=== PATIENT | female | born 1950 | race American Indian/Alaskan Native ===

== ENCOUNTER 2016-12-08 05:31 | Outpatient (CLI) | payer BC ==
[~2016-12-08] VITALS: Ht 175.3 cm; Wt 99.8 kg
[~2016-12-08 05:31] MED LIST: CLAR-19 PO; MINO45TA PO; NF-CODDM PO; OMEP-10 PO
[2016-12-08] MEDS ORDERED: FLUO60TA PO (10:28)
[2016-12-08] MEDS ORDERED: DULO30CA3 PO (10:28)
[2016-12-08] MEDS ORDERED: CYCL10TA9 PO (10:28)
[2016-12-08] MEDS ORDERED: LEVO25TA5 PO (10:28)
[2016-12-08] MEDS ORDERED: OMEP20CA12 PO (10:28)
[2016-12-08] MEDS ORDERED: MINO100C2 PO (10:28)
[2016-12-08] MEDS ORDERED: ALPR1TAB2 PO (10:31)
[2016-12-08] MEDS ORDERED: VITA-244 PO (10:31)
== END 2016-12-08 10:40 ==
LOC: PREOP 05:31
PROVIDERS: ATTEND Surgery
DX: Z01.818 Encounter for other preprocedural examination (principal); Z12.11 Encounter for screening for malignant neoplasm of colon; K21.9 Gastro-esophageal reflux disease without esophagitis

== ENCOUNTER 2016-12-10 11:33 | Day surgery (SDC) | payer BC ==
[~2016-12-10] VITALS: Ht 175.3 cm; Wt 99.8 kg
[~2016-12-10 11:33] MED LIST changes: +ALPR1TAB2 PO; +CYCL10TA9 PO; +DULO30CA3 PO; +FLUO60TA PO; +LEVO25TA5 PO; +MINO100C2 PO; +OMEP20CA12 PO; +VITA-244 PO
--- OUTSIDE RECORDS SUMMARY | 2016-12-10 11:38 | XMS REPORT ---
Author Author MATHEW VELÁZQUEZ [facility] Address [address] [place] [address] Care Team Providers Care Hardware Engineer Name Role Phone MATHEW VELÁZQUEZ Unavailable PROBLEMS Type Condition ICD9-CM Code [id number] Code Onset Dates Condition Status SNOMED Code Problem Rhinitis, unspecified type J31.0 Active 40059815 Problem Concussion with loss of consciousness of 30 minutes or less, sequela S06.0X1S Active 568256988 Problem Reflux 530.81 Active 16707176 Problem Unspecified hereditary and idiopathic peripheral neuropathy 356.9 Active 856883031 Problem Back pain with left-sided radiculopathy M54.10 Active 327070414 Problem Dysthymic disorder F34.1 Active 03378526 ALLERGIES Unknown Allergies SOCIAL HISTORY No smoking Hx information available PLAN OF CARE VITAL SIGNS MEDICATIONS Unknown Medications RESULTS No Results PROCEDURES No Known procedures IMMUNIZATIONS No Known Immunizations
--- OUTSIDE RECORDS SUMMARY | 2016-12-10 11:39 | XMS REPORT ---
Author Author MATHEW VELÁZQUEZ Organization [employer] Address Unknown Phone Unavailable Care Team Providers Care Salad Maker Name Role Phone MATHEW VELÁZQUEZ CP Unavailable Allergies No Known Allergies Problems Problem Type Condition Code Onset Dates Condition Status Problem Back pain with left-sided radiculopathy M54.10 Active Problem Dysthymic disorder F34.1 Active Problem Concussion with loss of consciousness of 30 minutes or less, sequela S06.0X1S Active Problem Reflux 530.81 Active Problem Unspecified hereditary and idiopathic peripheral neuropathy 356.9 Active Medications Medication Code System Code Instructions Start Date End Date Status Dosage cyclobenzaprine [facility] [address]-43 10 mg by oral route 2 times a day, PRN 1 tablet Results No Known Results Summary Purpose [employer]ClinicalWorks Submission
--- OUTSIDE RECORDS SUMMARY | 2016-12-10 11:39 | XMS REPORT ---
Author Author MATHEW VELÁZQUEZ [facility] e[employer] Address Unknown Phone Unavailable Care Team Providers Care Electroplating Technician Name Role Phone MATHEW VELÁZQUEZ CP Unavailable Allergies, Adverse Reactions, Alerts Substance Reaction Event Type Soma angioedema Drug Allergy Problems Problem Type Condition Code Onset Dates Condition Status Problem Unspecified synovial cyst 727.40 Active Problem Unspecified myalgia and myositis 729.1 Active Problem Family history of diabetes mellitus V18.0 Active Problem Back pain with left-sided radiculopathy M54.10 Active Problem Dysthymic disorder F34.1 Active Problem Concussion with loss of consciousness of 30 minutes or less, sequela S06.0X1S Active Problem Dysthymic disorder 300.4 Active Problem Concussion, with loss of consciousness of 30 minutes or less 850.11 Active Problem Reflux 530.81 Active Problem Dermatophytosis of the body 110.5 Active Assessment Concussion with loss of consciousness of 30 minutes or less, sequela S06.0X1S Active Assessment Dysthymic disorder F34.1 Active Assessment Back pain with left-sided radiculopathy M54.10 Active Problem Unspecified hereditary and idiopathic peripheral neuropathy 356.9 Active Medications Medication Code System Code Instructions Start Date End Date Status Dosage Prilosec OTC [facility] 87[address]6635 20 MG Orally Once a day 1 tablet Diclofenac Sodium [facility] [address]-98 1 % Externally Twice a day prn June 1 application to affected area Xanax [facility] [address]-73 1 MG Orally 2 times a day, PRN. Must last one month 0.5-1 tablet Minocycline HCl [facility] 26643337803 100 MG TAKE ONE CAPSULE BY MOUTH DAILY Naproxen [facility] [address]-40 500 MG take 1 tablet (500 mg) by oral route 2 times per day with food Tramadol HCl [facility] [address]-74 50 mg Orally every 8 hrs must last 1 m July 09, 2014 1 tablet as needed HydrOXYzine HCl [facility] [address]-25 25 MG Orally 2 times a day one tablet Fluoxetine HCl [facility] 91599665618 60 MG TAKE ONE TABLET BY MOUTH ONCE DAILY Cymbalta [facility] 72337551885 30 MG Orally Twice a day 1 capsule cyclobenzaprine [facility] [address]-32 10 mg by oral route 2 times a day, PRN 1 tablet Procedures Procedure Coding System Code Date Office Visit, Est Pt., Level 3 CPT-4 63396 September 11, 2015 Vital Signs Date/Time: September 11, 2015 Cardiac Monitoring Heart Rate 88 bpm Weight 231.4 lbs Height 70.5 in Blood Pressure Diastolic 80 mmHg Blood Pressure Systolic 110 mmHg Results No Known Results Summary Purpose eClinicalWorks Submission
--- OUTSIDE RECORDS SUMMARY | 2016-12-10 11:39 | XMS REPORT ---
Author Author MATHEW VELÁZQUEZ Organization [employer] Address Unknown Phone Unavailable Care Team Providers Care Reproductive Endocrinologist Name Role Phone MATHEW VELÁZQUEZ CP Unavailable Allergies No Known Allergies Problems Problem Type Condition Code Onset Dates Condition Status Problem Unspecified hereditary and idiopathic peripheral neuropathy 356.9 Active Problem Dermatophytosis of the body 110.5 Active Problem Dysthymic disorder 300.4 Active Problem Reflux 530.81 Active Problem Family history of diabetes mellitus V18.0 Active Problem Unspecified synovial cyst 727.40 Active Problem Concussion, with loss of consciousness of 30 minutes or less 850.11 Active Problem Unspecified myalgia and myositis 729.1 Active Medications Medication Code System Code Instructions Start Date End Date Status Dosage Xanax [facility] [address]-57 1 MG Orally 2 times a day, PRN. Must last one month 0.5-1 tablet HydrOXYzine HCl [facility] [address]-75 25 MG Orally 2 times a day one tablet Results No Known Results Summary Purpose [employer]ClinicalWorks Submission
--- OUTSIDE RECORDS SUMMARY | 2016-12-10 11:39 | XMS REPORT ---
Author Author MATHEW VELÁZQUEZ Organization [employer] Address Unknown Phone Unavailable Care Team Providers Care Crime Scene Investigator Name Role Phone MATHEW VELÁZQUEZ CP Unavailable [...] Start Date End Date Status Dosage Xanax [facility] [address]-79 1 MG Orally 2 times a day, PRN. Must last one month 0.5-1 tablet Results No Known Results Summary Purpose [employer]ClinicalWorks Submission
--- OUTSIDE RECORDS SUMMARY | 2016-12-10 11:39 | XMS REPORT ---
Author Author MATHEW VELÁZQUEZ [facility] eClinical[employer] Address Unknown Phone Unavailable Care Team Providers Care Translator Deaf Name Role Phone MATHEW VELÁZQUEZ CP Unavailable Allergies, Adverse Reactions, Alerts Substance Reaction Event Type Soma Info Not Available Drug Allergy Problems Problem Type Condition Code Onset Dates Condition Status Assessment Unspecified hereditary and idiopathic peripheral neuropathy 356.9 Active Problem Unspecified synovial cyst 727.40 Active Problem Unspecified hereditary and idiopathic peripheral neuropathy 356.9 Active Assessment Dysthymic disorder F34.1 Active Problem Reflux 530.81 Active Problem Dermatophytosis of the body 110.5 Active Problem Dysthymic disorder F34.1 Active Problem Unspecified myalgia and myositis 729.1 Active Problem Family history of diabetes mellitus V18.0 Active Problem Dysthymic disorder 300.4 Active Problem Concussion, with loss of consciousness of 30 minutes or less 850.11 Active Medications Medication Code System Code Instructions Start Date End Date Status Dosage Xanax [facility] [address]-58 1 MG Orally 2 times a day, PRN. Must last one month 0.5-1 tablet Minocycline HCl [facility] 86074085406 100 MG TAKE ONE CAPSULE BY MOUTH DAILY Prilosec OTC [facility] [address] 20 MG Orally Once a day 1 tablet Fluoxetine HCl [facility] 98921382392 60 MG TAKE ONE TABLET BY MOUTH ONCE DAILY Triamcinolone Acetonide [facility] [address]-48 0.1 % Externally Twice a day Dec 31, 2014 1 application to affected area Tramadol HCl [facility] [address]-59 50 MG Orally every 8 hrs July 09, 2014 1 tablet as needed Cymbalta [facility] [address]-02 30 MG Orally Twice a day Mar 27, 2015 1 capsule qhs x 1 w thne bid HydrOXYzine HCl [facility] [address]-42 25 MG Orally 2 times a day one tablet Naproxen [facility] [address]-92 500 MG take 1 tablet (500 mg) by oral route 2 times per day with food Fluoxetine NDC 0 60 mg 1 Tablet by Oral route 1 time per day Procedures Procedure Coding System Code Date Office Visit, Est Pt., Level 3 CPT-4 16234 Mar 27, 2015 Vital Signs Date/Time: Mar 27, 2015 Temperature 97.6 F Weight 240.2 lbs Height 70.5 in BMI 33.97 Index Blood Pressure Diastolic 80 mmHg Blood Pressure Systolic 126 mmHg Cardiac Monitoring Heart Rate 60 bpm Results No Known Results Summary Purpose eClinicalWorks Submission
--- OUTSIDE RECORDS SUMMARY | 2016-12-10 11:39 | XMS REPORT ---
Author Author MATHEW VELÁZQUEZ [facility] Address [address] [place] [address] Care Team Providers Care Bacteriologist Soil Name Role Phone MATHEW VELÁZQUEZ Unavailable PROBLEMS Type Condition ICD9-CM Code IAP35-BF Code Onset Dates Condition Status SNOMED Code Problem Rhinitis, unspecified type J31.0 Active 18304667 Problem Concussion with loss of consciousness of 30 minutes or less, sequela S06.0X1S Active 219700322 Problem Reflux 530.81 Active 44063105 Problem Unspecified hereditary and idiopathic peripheral neuropathy 356.9 Active 398805101 Problem Back pain with left-sided radiculopathy M54.10 Active 142998817 Problem Dysthymic disorder F34.1 Active 99581613 ALLERGIES No Known Allergies SOCIAL HISTORY No smoking Hx information available PLAN OF CARE VITAL SIGNS MEDICATIONS Medication Instructions Dosage Frequency Start Date End Date Duration Status Cymbalta 30 MG Orally Twice a day 1 capsule 12h 0 days Active RESULTS No Results PROCEDURES No Known procedures IMMUNIZATIONS No Known Immunizations
--- OUTSIDE RECORDS SUMMARY | 2016-12-10 11:39 | XMS REPORT ---
Author Author MATHEW VELÁZQUEZ Organization [employer] Address Unknown Phone Unavailable Care Team Providers Care Director Software Name Role Phone MATHEW VELÁZQUEZ CP Unavailable [...] Unspecified myalgia and myositis 729.1 Active Medications No Known Medications Results No Known Results Summary Purpose eClinicalWorks Submission
--- OUTSIDE RECORDS SUMMARY | 2016-12-10 11:39 | XMS REPORT ---
Author Author MATHEW VELÁZQUEZ [facility] Address [address] [place] [address] Care Team Providers Care Pulmonary Function Technologist Name Role Phone MATHEW VELÁZQUEZ Unavailable PROBLEMS Type Condition ICD9-CM Code FCA75-OX Code Onset Dates Condition Status SNOMED Code Assessment Rhinitis, unspecified type J31.0 Feb, Active 44418309 Problem Rhinitis, unspecified type J31.0 Active 72754091 Problem Concussion with loss of consciousness of 30 minutes or less, sequela S06.0X1S Active 983623699 Problem Reflux 530.81 Active 79904112 Problem Unspecified hereditary and idiopathic peripheral neuropathy 356.9 Active 064962882 Problem Back pain with left-sided radiculopathy M54.10 Active 615837562 Problem Dysthymic disorder F34.1 Active 61079247 ALLERGIES Substance Reaction Event Type Date Status Soma angioedema Drug Allergy Feb, Active SOCIAL HISTORY No smoking Hx information available PLAN OF CARE VITAL SIGNS Height 70.5 in 2016-02-18 Weight 231 lbs 2016-02-18 Heart Rate 80 bpm 2016-02-18 Respiratory Rate 16 2016-02-18 BMI 32.67 kg/m2 2016-02-18 Blood pressure systolic 120 mmHg 2016-02-18 Blood pressure diastolic 74 mmHg 2016-02-18 MEDICATIONS Medication Instructions Dosage Frequency Start Date End Date Duration Status Xanax 1 MG Orally 2 times a day, PRN. Must last one month 0.5-1 tablet Active Minocycline HCl 100 MG TAKE ONE CAPSULE BY MOUTH DAILY 90 Active Naproxen 500 MG take 1 tablet (500 mg) by oral route 2 times per day with food Active Tramadol HCl 50 mg Orally every 8 hrs must last 1 m 1 tablet as needed Jun, Active Prilosec OTC 20 MG Orally Once a day 1 tablet 24h Active cyclobenzaprine 10 mg by oral route 2 times a day, PRN 1 tablet Active Diclofenac Sodium 1 % Externally Twice a day prn 1 application to affected area Jun, Active Albuterol Sulfate HFA 108 (90 Base) MCG/ACT Inhalation 4 times a day 2 puffs as needed 6h 26 Dec, 2015 Active HydrOXYzine HCl 25 MG TAKE ONE TABLET BY MOUTH TWICE DAILY NEEDED FOR ITCHING 30 Active Fluoxetine HCl 60 mg TAKE ONE TABLET BY MOUTH ONCE DAILY 30 Active Cymbalta 30 MG Orally Twice a day 1 capsule 12h 30 Active RESULTS No Results PROCEDURES Procedure Date Ordered Related Diagnosis Body Site Office Visit, Est Pt., Level 3 Feb 18, 2016 IMMUNIZATIONS No Known Immunizations
--- OUTSIDE RECORDS SUMMARY | 2016-12-10 11:39 | XMS REPORT ---
Author Author MATHEW VELÁZQUEZ [facility] eClinicalWorks Address Unknown Phone Unavailable Care Team Providers Care Retail Department Reset Name Role Phone MATHEW VELÁZQUEZ CP Unavailable Allergies, Adverse Reactions, Alerts Substance Reaction Event Type Soma Info Not Available Drug Allergy Problems Problem Type Condition Code Onset Dates Condition Status Assessment Encounter for immunization Z23 Active Problem Unspecified hereditary and idiopathic peripheral neuropathy 356.9 Active Assessment Dysthymic disorder 300.4 Active Assessment Dermatitis L30.9 Active Assessment Unspecified myalgia and myositis 729.1 Active Problem Dermatophytosis of the body 110.5 Active Problem Dysthymic disorder 300.4 Active Problem Reflux 530.81 Active Problem Family history of diabetes mellitus V18.0 Active Problem Unspecified synovial cyst 727.40 Active Problem Concussion, with loss of consciousness of 30 minutes or less 850.11 Active Problem Unspecified myalgia and myositis 729.1 Active Medications Medication Code System Code Instructions Start Date End Date Status Dosage Naproxen [facility] [address]-01 500 MG take 1 tablet (500 mg) by oral route 2 times per day with food Fluoxetine HCl [facility] 67676224204 60 MG TAKE ONE TABLET BY MOUTH ONCE DAILY Diclofenac Sodium [facility] [address]-74 1 % Externally Twice a day prn June 1 application to affected area Triamcinolone Acetonide [facility] [address]-81 0.1 % Externally Twice a day Dec 31, 2014 1 application to affected area Fluoxetine ND 0 60 mg 1 Tablet by Oral route 1 time per day Gabapentin [facility] [address]-98 300 MG 1 capsule tid Xanax [facility] [address]-06 1 MG Orally 2 times a day, PRN. Must last one month 0.5-1 tablet Tramadol HCl [facility] [address]-29 50 MG Orally every 8 hrs July 09, 2014 1 tablet as needed HydrOXYzine HCl [facility] 14959764097 25 MG TAKE ONE TABLET BY MOUTH TWICE DAILY NEEDED FOR ITCHING Minocycline HCl [facility] 13642807449 100 MG TAKE ONE CAPSULE BY MOUTH DAILY Prilosec OTC [facility] [address] 20 MG Orally Once a day 1 tablet Procedures Procedure Coding System Code Date FLUARIX QUAD (3 & UP)-GSK CPT-4 57218 Dec 31, 2014 SINGLE IMMUNIZATION ADMIN CPT-4 86357 Dec 31, 2014 Office Visit, Est Pt., Level 3 CPT-4 08501 Dec 31, 2014 Vital Signs Date/Time: Dec 31, 2014 Temperature 97 F Weight 232 lbs Height 70.5 in BMI 32.81 Index Blood Pressure Diastolic 68 mmHg Blood Pressure Systolic 124 mmHg Cardiac Monitoring Heart Rate 70 bpm Results No Known Results Immunizations Vaccine Administration Date FLUARIX QUAD (3 & UP)-GSKDec 31, 2014 Summary Purpose eClinicalWorks Submission
--- OUTSIDE RECORDS SUMMARY | 2016-12-10 11:40 | XMS REPORT | Continuity of Care Document ---
Author Author [facility] Address Unknown Phone Unavailable Allergies Active Description Code Type Severity Reaction Onset Reported/Identified Relationship to Patient Clinical Status Yes NKANo Known Allergies NKA Miscellaneous Allergy Unknown N/ A 07/15/2005 Medications Problems Date Dx Coded Attending Type Code Diagnosis Diagnosed By 11/27/2008 V74.1 SCREENING EXAMINATION FOR PULMONARY TUBERCULOSIS 11/27/2008 V74.1 SCREENING EXAMINATION FOR PULMONARY TUBERCULOSIS 11/27/2008 V74.1 SCREENING EXAMINATION FOR PULMONARY TUBERCULOSIS 11/27/2008 V74.1 SCREENING EXAMINATION FOR PULMONARY TUBERCULOSIS 11/27/2008 DE LA CRUZ DO, KELY K V74.1 SCREENING EXAMINATION FOR PULMONARY TUBERCULOSIS 11/27/2008 DE LA CRUZ DO, KELY K V74.1 SCREENING EXAMINATION FOR PULMONARY TUBERCULOSIS 11/27/2008 DE LA CRUZ DO, KELY K V74.1 SCREENING EXAMINATION FOR PULMONARY TUBERCULOSIS 11/27/2008 DE LA CRUZ DO, KELY K V74.1 SCREENING EXAMINATION FOR PULMONARY TUBERCULOSIS 11/27/2008 DE LA CRUZ DO, KELY K V74.1 SCREENING EXAMINATION FOR PULMONARY TUBERCULOSIS 11/27/2008 MATHEW VELÁZQUEZ APRN V74.1 SCREENING EXAMINATION FOR PULMONARY TUBERCULOSIS 11/27/2008 DE LA CRUZ DO, KELY K V74.1 SCREENING EXAMINATION FOR PULMONARY TUBERCULOSIS 11/27/2008 DE LA CRUZ DO, KELY K V74.1 SCREENING EXAMINATION FOR PULMONARY TUBERCULOSIS 11/27/2008 DE LA CRUZ DO, KELY K V74.1 SCREENING EXAMINATION FOR PULMONARY TUBERCULOSIS 11/27/2008 DE LA CRUZ DO, KELY K V74.1 SCREENING EXAMINATION FOR PULMONARY TUBERCULOSIS 11/27/2008 DE LA CRUZ DO, KELY K V74.1 SCREENING EXAMINATION FOR PULMONARY TUBERCULOSIS 11/27/2008 DE LA CRUZ DO, KELY K V74.1 SCREENING EXAMINATION FOR PULMONARY TUBERCULOSIS 11/27/2008 DE LA CRUZ DO, KELY K V74.1 SCREENING EXAMINATION FOR PULMONARY TUBERCULOSIS 11/27/2008 MATHEW VELÁZQUEZ APRN V74.1 SCREENING EXAMINATION FOR PULMONARY TUBERCULOSIS 02/18/2010 704.02 TELOGEN EFFLUVIUM 02/18/2010 704.02 TELOGEN EFFLUVIUM 02/18/2010 704.02 TELOGEN EFFLUVIUM 02/18/2010 704.02 TELOGEN EFFLUVIUM 02/18/2010 DE LA CRUZ DO, KELY K 704.02 TELOGEN EFFLUVIUM 02/18/2010 DE LA CRUZ DO, KELY K 704.02 TELOGEN EFFLUVIUM 02/18/2010 DE LA CRUZ DO, KELY K 704.02 TELOGEN EFFLUVIUM 02/18/2010 DE LA CRUZ DO, KELY K 704.02 TELOGEN EFFLUVIUM 02/18/2010 DE LA CRUZ DO, KELY K 704.02 TELOGEN EFFLUVIUM 02/18/2010 MATHEW VELÁZQUEZ APRN 704.02 TELOGEN EFFLUVIUM 02/18/2010 DE LA CRUZ DO, KELY K 704.02 TELOGEN EFFLUVIUM 02/18/2010 DE LA CRUZ DO, KELY K 704.02 TELOGEN EFFLUVIUM 02/18/2010 DE LA CRUZ DO, KELY K 704.02 TELOGEN EFFLUVIUM 02/18/2010 DE LA CRUZ DO, KELY K 704.02 TELOGEN EFFLUVIUM 02/18/2010 DE LA CRUZ DO, KELY K 704.02 TELOGEN EFFLUVIUM 02/18/2010 DE LA CRUZ DO, KELY K 704.02 TELOGEN EFFLUVIUM 02/18/2010 DE LA CRUZ DO, KELY K 704.02 TELOGEN EFFLUVIUM 02/18/2010 MATHEW VELÁZQUEZ APRN 704.02 TELOGEN EFFLUVIUM 04/01/2010 333.94 RESTLESS LEGS SYNDROME 04/01/2010 338.29 CHRONIC PAIN 04/01/2010 333.94 RESTLESS LEGS SYNDROME 04/01/2010 338.29 CHRONIC PAIN 04/01/2010 333.94 RESTLESS LEGS SYNDROME 04/01/2010 338.29 CHRONIC PAIN 04/01/2010 333.94 RESTLESS LEGS SYNDROME 04/01/2010 338.29 CHRONIC PAIN 04/01/2010 D ELA CRUZ DO, KELY K 333.94 RESTLESS LEGS SYNDROME 04/01/2010 DE LA CRUZ DO, KELY K 338.29 CHRONIC PAIN 04/01/2010 DE LA CRUZ DO, KELY K 333.94 RESTLESS LEGS SYNDROME 04/01/2010 DE LA CRUZ DO, KELY K 338.29 CHRONIC PAIN 04/01/2010 DE LA CRUZ DO, KELY K 333.94 RESTLESS LEGS SYNDROME 04/01/2010 DE LA CRUZ DO, KELY K 338.29 CHRONIC PAIN 04/01/2010 DE LA CRUZ DO, KELY K 333.94 RESTLESS LEGS SYNDROME 04/01/2010 DE LA CRUZ DO, KELY K 338.29 CHRONIC PAIN 04/01/2010 DE LA CRUZ DO, KELY K 333.94 RESTLESS LEGS SYNDROME 04/01/2010 DE LA CRUZ DO, KELY K 338.29 CHRONIC PAIN 04/01/2010 MATHEW VELÁZQUEZ APRN 333.94 RESTLESS LEGS SYNDROME 04/01/2010 MATHEW VELÁZQUEZ APRN 338.29 CHRONIC PAIN 04/01/2010 DE LA CRUZ DO, KELY K 333.94 RESTLESS LEGS SYNDROME 04/01/2010 DE LA CRUZ DO, KELY K 338.29 CHRONIC PAIN 04/01/2010 DE LA CRUZ DO, KELY K 333.94 RESTLESS LEGS SYNDROME 04/01/2010 DE LA CRUZ DO, KELY K 338.29 CHRONIC PAIN 04/01/2010 DE LA CRUZ DO, KELY K 333.94 RESTLESS LEGS SYNDROME 04/01/2010 DE LA CRUZ DO, KELY K 338.29 CHRONIC PAIN 04/01/2010 DE LA CRUZ DO, KELY K 333.94 RESTLESS LEGS SYNDROME 04/01/2010 DE LA CRUZ DO, KELY K 338.29 CHRONIC PAIN 04/01/2010 DE LA CRUZ DO, KELY K 333.94 RESTLESS LEGS SYNDROME 04/01/2010 DE LA CRUZ DO, KELY K 338.29 CHRONIC PAIN 04/01/2010 DE LA CRUZ DO, KELY K 333.94 RESTLESS LEGS SYNDROME 04/01/2010 DE LA CRUZ DO, KELY K 338.29 CHRONIC PAIN 04/01/2010 DE LA CRUZ DO, KELY K 333.94 RESTLESS LEGS SYNDROME 04/01/2010 DE LA CRUZ DO, KELY K 338.29 CHRONIC PAIN 04/01/2010 MATHEW VELÁZQUEZ APRN 333.94 RESTLESS LEGS SYNDROME 04/01/2010 MATHEW VELÁZQUEZ APRN 338.29 CHRONIC PAIN 04/16/2010 466.0 Acute Bronchitis 04/16/2010 466.0 Acute Bronchitis 04/16/2010 466.0 Acute Bronchitis 04/16/2010 466.0 Acute Bronchitis 04/16/2010 DE LA CRUZ DO, KELY K 466.0 Acute Bronchitis 04/16/2010 DE LA CRUZ DO, KELY K 466.0 Acute Bronchitis 04/16/2010 DE LA CRUZ DO, KELY K 466.0 Acute Bronchitis 04/16/2010 DE LA CRUZ DO, KELY K 466.0 Acute Bronchitis 04/16/2010 DE LA CRUZ DO, KELY K 466.0 Acute Bronchitis 04/16/2010 MATHEW VELÁZQUEZ APRN 466.0 Acute Bronchitis 04/16/2010 DE LA CRUZ DO, KELY K 466.0 Acute Bronchitis 04/16/2010 DE LA CRUZ DO, KELY K 466.0 Acute Bronchitis 04/16/2010 DE LA CRUZ DO, KELY K 466.0 Acute Bronchitis 04/16/2010 DE LA CRUZ DO, KELY K 466.0 Acute Bronchitis 04/16/2010 DE LA CRUZ DO, KELY K 466.0 Acute Bronchitis 04/16/2010 DE LA CRUZ DO, KELY K 466.0 Acute Bronchitis 04/16/2010 DE LA CRUZ DO, KELY K 466.0 Acute Bronchitis 04/16/2010 MATHEW VELÁZQUEZ APRN 466.0 Acute Bronchitis 04/21/2010 307.89 OTHER PAIN DISORDER RELATED TO PSYCHOLOGICAL FACTORS 04/21/2010 307.89 OTHER PAIN DISORDER RELATED TO PSYCHOLOGICAL FACTORS 04/21/2010 307.89 OTHER PAIN DISORDER RELATED TO PSYCHOLOGICAL FACTORS 04/21/2010 307.89 OTHER PAIN DISORDER RELATED TO PSYCHOLOGICAL FACTORS 04/21/2010 DE LA CRUZ DO, KELY K 307.89 OTHER PAIN DISORDER RELATED TO PSYCHOLOGICAL FACTORS 04/21/2010 DE LA CRUZ DO, KELY K 307.89 OTHER PAIN DISORDER RELATED TO PSYCHOLOGICAL FACTORS 04/21/2010 DE LA CRUZ DO, KELY K 307.89 OTHER PAIN DISORDER RELATED TO PSYCHOLOGICAL FACTORS 04/21/2010 DE LA CRUZ DO, KELY K 307.89 OTHER PAIN DISORDER RELATED TO PSYCHOLOGICAL FACTORS 04/21/2010 DE LA CRUZ DO, KELY K 307.89 OTHER PAIN DISORDER RELATED TO PSYCHOLOGICAL FACTORS 04/21/2010 MATHEW VELÁZQUEZ APRN 307.89 OTHER PAIN DISORDER RELATED TO PSYCHOLOGICAL FACTORS 04/21/2010 DE LA CRUZ DO, KELY K 307.89 OTHER PAIN DISORDER RELATED TO PSYCHOLOGICAL FACTORS 04/21/2010 DE LA CRUZ DO, KELY K 307.89 OTHER PAIN DISORDER RELATED TO PSYCHOLOGICAL FACTORS 04/21/2010 DE LA CRUZ DO, KELY K 307.89 OTHER PAIN DISORDER RELATED TO PSYCHOLOGICAL FACTORS 04/21/2010 DE LA CRUZ DO, KELY K 307.89 OTHER PAIN DISORDER RELATED TO PSYCHOLOGICAL FACTORS 04/21/2010 DE LA CRUZ DO, KELY K 307.89 OTHER PAIN DISORDER RELATED TO PSYCHOLOGICAL FACTORS 04/21/2010 DE LA CRUZ DO, KELY K 307.89 OTHER PAIN DISORDER RELATED TO PSYCHOLOGICAL FACTORS 04/21/2010 DE LA CRUZ DO, KELY K 307.89 OTHER PAIN DISORDER RELATED TO PSYCHOLOGICAL FACTORS 04/21/2010 MATHEW VELÁZQUEZ APRN 307.89 OTHER PAIN DISORDER RELATED TO PSYCHOLOGICAL FACTORS 08/13/2010 692.6 Poison Marilia 08/13/2010 698.9 UNSPECIFIED PRURITIC DISORDER 08/13/2010 692.6 Poison Marilia 08/13/2010 698.9 UNSPECIFIED PRURITIC DISORDER 08/13/2010 692.6 Poison Marilia 08/13/2010 698.9 UNSPECIFIED PRURITIC DISORDER 08/13/2010 692.6 Poison Marilia 08/13/2010 698.9 UNSPECIFIED PRURITIC DISORDER 08/13/2010 DE LA CRUZ DO, KELY K 692.6 Poison Marilia 08/13/2010 DE LA CRUZ DO, KELY K 698.9 UNSPECIFIED PRURITIC DISORDER 08/13/2010 DE LA CRUZ DO, KELY K 692.6 Poison Marilia 08/13/2010 DE LA CRUZ DO, KELY K 698.9 UNSPECIFIED PRURITIC DISORDER 08/13/2010 DE LA CRUZ DO, KELY K 692.6 Poison Marilia 08/13/2010 DE LA CRUZ DO, KELY K 698.9 UNSPECIFIED PRURITIC DISORDER 08/13/2010 DE LA CRUZ DO, KELY K 692.6 Poison Marilia 08/13/2010 DE LA CRUZ DO, KELY K 698.9 UNSPECIFIED PRURITIC DISORDER 08/13/2010 DE LA CRUZ DO, KELY K 692.6 Poison Marilia 08/13/2010 DE LA CRUZ DO, KELY K 698.9 UNSPECIFIED PRURITIC DISORDER 08/13/2010 MATHEW VELÁZQUEZ APRN 692.6 Poison Marilia 08/13/2010 MATHEW VELÁZQUEZ APRN 698.9 UNSPECIFIED PRURITIC DISORDER 08/13/2010 DE LA CRUZ DO, KELY K 692.6 Poison Marilia 08/13/2010 DE LA CRUZ DO, KELY K 698.9 UNSPECIFIED PRURITIC DISORDER 08/13/2010 DE LA CRUZ DO, KELY K 692.6 Poison Marilia 08/13/2010 DE LA CRUZ DO, KELY K 698.9 UNSPECIFIED PRURITIC DISORDER 08/13/2010 DE LA CRUZ DO, KELY K 692.6 Poison Marilia 08/13/2010 DE LA CRUZ DO, KELY K 698.9 UNSPECIFIED PRURITIC DISORDER 08/13/2010 DE LA CRUZ DO, KELY K 692.6 Poison Marilia 08/13/2010 DE LA CRUZ DO, KELY K 698.9 UNSPECIFIED PRURITIC DISORDER 08/13/2010 DE LA CRUZ DO, KELY K 692.6 Poison Marilia 08/13/2010 DE LA CRUZ DO, KELY K 698.9 UNSPECIFIED PRURITIC DISORDER 08/13/2010 DE LA CRUZ DO, KELY K 692.6 Poison Marilia 08/13/2010 DE LA CRUZ DO, KELY K 698.9 UNSPECIFIED PRURITIC DISORDER 08/13/2010 DE LA CRUZ DO, KELY K 692.6 Poison Marilia 08/13/2010 DE LA CRUZ DO, KELY K 698.9 UNSPECIFIED PRURITIC DISORDER 08/13/2010 MATHEW VELÁZQUEZ APRN 692.6 Poison Marilia 08/13/2010 VELÁZQUEZ MATHEW INFANTE 698.9 UNSPECIFIED PRURITIC DISORDER 11/11/2010 278.00 OBESITY UNSPECIFIED 11/11/2010 380.10 Otitis Externa - Right Ear 11/11/2010 278.00 OBESITY UNSPECIFIED 11/11/2010 380.10 Otitis Externa - Right Ear 11/11/2010 278.00 OBESITY UNSPECIFIED 11/11/2010 380.10 Otitis Externa - Right Ear 11/11/2010 278.00 OBESITY UNSPECIFIED 11/11/2010 380.10 Otitis Externa - Right Ear 11/11/2010 DE LA CRUZ DO, KELY K 278.00 OBESITY UNSPECIFIED 11/11/2010 DE LA CRUZ DO, KELY K 380.10 Otitis Externa - Right Ear 11/11/2010 DE LA CRUZ DO, KELY K 278.00 OBESITY UNSPECIFIED 11/11/2010 DE LA CRUZ DO, KELY K 380.10 Otitis Externa - Right Ear 11/11/2010 DE LA CRUZ DO, KELY K 278.00 OBESITY UNSPECIFIED 11/11/2010 DE LA CRUZ DO, KELY K 380.10 Otitis Externa - Right Ear 11/11/2010 DE LA CRUZ DO, KELY K 278.00 OBESITY UNSPECIFIED 11/11/2010 DE LA CRUZ DO, KELY K 380.10 Otitis Externa - Right Ear 11/11/2010 DE LA CRUZ DO, KELY K 278.00 OBESITY UNSPECIFIED 11/11/2010 DE LA CRUZ DO, KELY K 380.10 Otitis Externa - Right Ear 11/11/2010 MATHEW VELÁZQUEZ APRN 278.00 OBESITY UNSPECIFIED 11/11/2010 MATHEW VELÁZQUEZ APRN 380.10 Otitis Externa - Right Ear 11/11/2010 DE LA CRUZ DO, KELY K 278.00 OBESITY UNSPECIFIED 11/11/2010 DE LA CRUZ DO, KELY K 380.10 Otitis Externa - Right Ear 11/11/2010 DE LA CRUZ DO, KELY K 278.00 OBESITY UNSPECIFIED 11/11/2010 DE LA CRUZ DO, KELY K 380.10 Otitis Externa - Right Ear 11/11/2010 DE LA CRUZ DO, KELY K 278.00 OBESITY UNSPECIFIED 11/11/2010 DE LA CRUZ DO, KELY K 380.10 Otitis Externa - Right Ear 11/11/2010 DE LA CRUZ DO, KELY K 278.00 OBESITY UNSPECIFIED 11/11/2010 DE LA CRUZ DO, KELY K 380.10 Otitis Externa - Right Ear 11/11/2010 DE LA CRUZ DO, KELY K 278.00 OBESITY UNSPECIFIED 11/11/2010 DE LA CRUZ DO, KELY K 380.10 Otitis Externa - Right Ear 11/11/2010 DE LA CRUZ DO, KELY K 278.00 OBESITY UNSPECIFIED 11/11/2010 DE LA CRUZ DO, KELY K 380.10 Otitis Externa - Right Ear 11/11/2010 DE LA CRUZ DO, KELY K 278.00 OBESITY UNSPECIFIED 11/11/2010 DE LA CRUZ DO, KELY K 380.10 Otitis Externa - Right Ear 11/11/2010 MATHEW VELÁZQUEZ APRN 278.00 OBESITY UNSPECIFIED 11/11/2010 MATHEW VELÁZQUEZ APRN 380.10 Otitis Externa - Right Ear 07/30/2011 729.1 MYALGIA AND MYOSITIS, UNSPECIFIED 07/30/2011 729.1 MYALGIA AND MYOSITIS, UNSPECIFIED 07/30/2011 729.1 MYALGIA AND MYOSITIS, UNSPECIFIED 07/30/2011 729.1 MYALGIA AND MYOSITIS, UNSPECIFIED 07/30/2011 DE LA CRUZ DO, KELY K 729.1 MYALGIA AND MYOSITIS, UNSPECIFIED 07/30/2011 DE LA CRUZ DO, KELY K 729.1 MYALGIA AND MYOSITIS, UNSPECIFIED 07/30/2011 DE LA CRUZ DO, KELY K 729.1 MYALGIA AND MYOSITIS, UNSPECIFIED 07/30/2011 DE LA CRUZ DO, KELY K 729.1 MYALGIA AND MYOSITIS, UNSPECIFIED 07/30/2011 DE LA CRUZ DO, KELY K 729.1 MYALGIA AND MYOSITIS, UNSPECIFIED 07/30/2011 MATHEW VELÁZQUEZ APRN 729.1 MYALGIA AND MYOSITIS, UNSPECIFIED 07/30/2011 DE LA CRUZ DO, KELY K 729.1 MYALGIA AND MYOSITIS, UNSPECIFIED 07/30/2011 DE LA CRUZ DO, KELY K 729.1 MYALGIA AND MYOSITIS, UNSPECIFIED 07/30/2011 DE LA CRUZ DO, KELY K 729.1 MYALGIA AND MYOSITIS, UNSPECIFIED 07/30/2011 DE LA CRUZ DO, KELY K 729.1 MYALGIA AND MYOSITIS, UNSPECIFIED 07/30/2011 DE LA CRUZ DO, KELY K 729.1 MYALGIA AND MYOSITIS, UNSPECIFIED 07/30/2011 DE LA CRUZ DO, KELY K 729.1 MYALGIA AND MYOSITIS, UNSPECIFIED 07/30/2011 DE LA CRUZ DO, KELY K 729.1 MYALGIA AND MYOSITIS, UNSPECIFIED 07/30/2011 MATHEW VELÁZQUEZ APRN 729.1 MYALGIA AND MYOSITIS, UNSPECIFIED 09/17/2011 719.04 Swelling Of Hands 09/17/2011 719.04 Swelling Of Hands 09/17/2011 719.04 Swelling Of Hands 09/17/2011 719.04 Swelling Of Hands 09/17/2011 DE LA CRUZ DO, KEYL K 719.04 Swelling Of Hands 09/17/2011 DE LA CRUZ DO, KELY K 719.04 Swelling Of Hands 09/17/2011 DE LA CRUZ DO, KELY K 719.04 Swelling Of Hands 09/17/2011 DE LA CRUZ DO, KELY K 719.04 Swelling Of Hands 09/17/2011 DE LA CRUZ DO, KELY K 719.04 Swelling Of Hands 09/17/2011 MATHEW VELÁZQUEZ APRN 719.04 Swelling Of Hands 09/17/2011 DE LA CRUZ DO, KELY K 719.04 Swelling Of Hands 09/17/2011 DE LA CRUZ DO, KELY K 719.04 Swelling Of Hands 09/17/2011 DE LA CRUZ DO, KELY K 719.04 Swelling Of Hands 09/17/2011 DE LA CRUZ DO, KELY K 719.04 Swelling Of Hands 09/17/2011 DE LA CRUZ DO, KELY K 719.04 Swelling Of Hands 09/17/2011 DE LA CRUZ DO, KELY K 719.04 Swelling Of Hands 09/17/2011 DE LA CRUZ DO, KELY K 719.04 Swelling Of Hands 09/17/2011 MATHEW VELÁZQUEZ APRN 719.04 Swelling Of Hands 09/30/2011 727.40 SYNOVIAL CYST UNSPECIFIED 09/30/2011 V18.0 FAMILY HISTORY OF DIABETES MELLITUS 09/30/2011 V70.5 HEALTH EXAMINATION OF DEFINED SUBPOPULATIONS 09/30/2011 727.40 SYNOVIAL CYST UNSPECIFIED 09/30/2011 V18.0 FAMILY HISTORY OF DIABETES MELLITUS 09/30/2011 V70.5 HEALTH EXAMINATION OF DEFINED SUBPOPULATIONS 09/30/2011 727.40 SYNOVIAL CYST UNSPECIFIED 09/30/2011 V18.0 FAMILY HISTORY OF DIABETES MELLITUS 09/30/2011 V70.5 HEALTH EXAMINATION OF DEFINED SUBPOPULATIONS 09/30/2011 727.40 SYNOVIAL CYST UNSPECIFIED 09/30/2011 V18.0 FAMILY HISTORY OF DIABETES MELLITUS 09/30/2011 V70.5 HEALTH EXAMINATION OF DEFINED SUBPOPULATIONS 09/30/2011 DE LA CRUZ DO, KELY K 727.40 SYNOVIAL CYST UNSPECIFIED 09/30/2011 DE LA CRUZ DO, KELY K V18.0 FAMILY HISTORY OF DIABETES MELLITUS 09/30/2011 DE LA CRUZ DO, KELY K V70.5 HEALTH EXAMINATION OF DEFINED SUBPOPULATIONS 09/30/2011 DE LA CRUZ DO, KELY K 727.40 SYNOVIAL CYST UNSPECIFIED 09/30/2011 DE LA CRUZ DO, KELY K V18.0 FAMILY HISTORY OF DIABETES MELLITUS 09/30/2011 DE LA CRUZ DO, KELY K V70.5 HEALTH EXAMINATION OF DEFINED SUBPOPULATIONS 09/30/2011 DE LA CRUZ DO, KELY K 727.40 SYNOVIAL CYST UNSPECIFIED 09/30/2011 DE LA CRUZ DO, KELY K V18.0 FAMILY HISTORY OF DIABETES MELLITUS 09/30/2011 DE LA CRUZ DO, KELY K V70.5 HEALTH EXAMINATION OF DEFINED SUBPOPULATIONS 09/30/2011 DE LA CRUZ DO, KELY K 727.40 SYNOVIAL CYST UNSPECIFIED 09/30/2011 DE LA CRUZ DO, KELY K V18.0 FAMILY HISTORY OF DIABETES MELLITUS 09/30/2011 DE LA CRUZ DO, KELY K V70.5 HEALTH EXAMINATION OF DEFINED SUBPOPULATIONS 09/30/2011 DE LA CRUZ DO, KELY K 727.40 SYNOVIAL CYST UNSPECIFIED 09/30/2011 DE LA CRUZ DO, KELY K V18.0 FAMILY HISTORY OF DIABETES MELLITUS 09/30/2011 DE LA CRUZ DO, KELY K V70.5 HEALTH EXAMINATION OF DEFINED SUBPOPULATIONS 09/30/2011 MATHEW VELÁZQUEZ APRN 727.40 SYNOVIAL CYST UNSPECIFIED 09/30/2011 MATHEW VELÁZQUEZ APRN V18.0 FAMILY HISTORY OF DIABETES MELLITUS 09/30/2011 MATHEW VELÁZQUEZ APRN V70.5 HEALTH EXAMINATION OF DEFINED SUBPOPULATIONS 09/30/2011 DE LA CRUZ DO, KELY K 727.40 SYNOVIAL CYST UNSPECIFIED 09/30/2011 DE LA CRUZ DO, KELY K V18.0 FAMILY HISTORY OF DIABETES MELLITUS 09/30/2011 DE LA CRUZ DO, KELY K V70.5 HEALTH EXAMINATION OF DEFINED SUBPOPULATIONS 09/30/2011 DE LA CRUZ DO, KELY K 727.40 SYNOVIAL CYST UNSPECIFIED 09/30/2011 DE LA CRUZ DO, KELY K V18.0 FAMILY HISTORY OF DIABETES MELLITUS 09/30/2011 DE LA CRUZ DO, KELY K V70.5 HEALTH EXAMINATION OF DEFINED SUBPOPULATIONS 09/30/2011 DE LA CRUZ DO, KELY K 727.40 SYNOVIAL CYST UNSPECIFIED 09/30/2011 DE LA CRUZ DO, KELY K V18.0 FAMILY HISTORY OF DIABETES MELLITUS 09/30/2011 DE LA CRUZ DO, KELY K V70.5 HEALTH EXAMINATION OF DEFINED SUBPOPULATIONS 09/30/2011 DE LA CRUZ DO, KELY K 727.40 SYNOVIAL CYST UNSPECIFIED 09/30/2011 DE LA CRUZ DO, KELY K V18.0 FAMILY HISTORY OF DIABETES MELLITUS 09/30/2011 DE LA CRUZ DO, KELY K V70.5 HEALTH EXAMINATION OF DEFINED SUBPOPULATIONS 09/30/2011 DE LA CRUZ DO, KELY K 727.40 SYNOVIAL CYST UNSPECIFIED 09/30/2011 DE LA CRUZ DO, KELY K V18.0 FAMILY HISTORY OF DIABETES MELLITUS 09/30/2011 DE LA CRUZ DO, KELY K V70.5 HEALTH EXAMINATION OF DEFINED SUBPOPULATIONS 09/30/2011 DE LA CRUZ DO, KELY K 727.40 SYNOVIAL CYST UNSPECIFIED 09/30/2011 DE LA CRUZ DO, KELY K V18.0 FAMILY HISTORY OF DIABETES MELLITUS 09/30/2011 DE LA CRUZ DO, KELY K V70.5 HEALTH EXAMINATION OF DEFINED SUBPOPULATIONS 09/30/2011 DE LA CRUZ DO, KELY K 727.40 SYNOVIAL CYST UNSPECIFIED 09/30/2011 DE LA CRUZ DO, KELY K V18.0 FAMILY HISTORY OF DIABETES MELLITUS 09/30/2011 DE LA CRUZ DO, KELY K V70.5 HEALTH EXAMINATION OF DEFINED SUBPOPULATIONS 09/30/2011 MATHEW VELÁZQUEZ APRN 727.40 SYNOVIAL CYST UNSPECIFIED 09/30/2011 MATHEW VELÁZQUEZ APRN V18.0 FAMILY HISTORY OF DIABETES MELLITUS 09/30/2011 MATHEW VELÁZQUEZ APRN V70.5 HEALTH EXAMINATION OF DEFINED SUBPOPULATIONS 10/05/2011 Ot 891.0 OPEN WND KNEE/LEG/ANKLE 10/05/2011 Ot E000.8 OTHER EXTERNAL CAUSE STATUS 10/05/2011 Ot E906.0 DOG BITE 01/20/2012 727.43 GANGLION UNSPECIFIED 01/20/2012 727.43 GANGLION UNSPECIFIED 01/20/2012 727.43 GANGLION UNSPECIFIED 01/20/2012 727.43 GANGLION UNSPECIFIED 01/20/2012 DE LA CRUZ DO, KELY K 727.43 GANGLION UNSPECIFIED 01/20/2012 DE LA CRUZ DO, KELY K 727.43 GANGLION UNSPECIFIED 01/20/2012 DE LA CRUZ DO, KELY K 727.43 GANGLION UNSPECIFIED 01/20/2012 DE LA CRUZ DO, KELY K 727.43 GANGLION UNSPECIFIED 01/20/2012 DE LA CRUZ DO, KELY K 727.43 GANGLION UNSPECIFIED 01/20/2012 MATHEW VELÁZQUEZ APRN 727.43 GANGLION UNSPECIFIED 01/20/2012 DE LA CRUZ DO, KELY K 727.43 GANGLION UNSPECIFIED 01/20/2012 DE LA CRUZ DO, KELY K 727.43 GANGLION UNSPECIFIED 01/20/2012 DE LA CRUZ DO, KELY K 727.43 GANGLION UNSPECIFIED 01/20/2012 DE LA CRUZ DO, KELY K 727.43 GANGLION UNSPECIFIED 01/20/2012 DE LA CRUZ DO, KELY K 727.43 GANGLION UNSPECIFIED 01/20/2012 DE LA CRUZ DO, KELY K 727.43 GANGLION UNSPECIFIED 01/20/2012 DE LA CRUZ DO, KELY K 727.43 GANGLION UNSPECIFIED 01/20/2012 MATHEW VELÁZQUEZ APRN 727.43 GANGLION UNSPECIFIED 12/14/2012 DE LA CRUZ DO, KELY K 911.5 INSECT BITE NONVENOMOUS OF TRUNK INFECTED 12/14/2012 DE LA CRUZ DO, KELY K 911.5 INSECT BITE NONVENOMOUS OF TRUNK INFECTED 12/14/2012 DE LA CRUZ DO, KELY K 911.5 INSECT BITE NONVENOMOUS OF TRUNK INFECTED 12/14/2012 DE LA CRUZ DO, KELY K 911.5 INSECT BITE NONVENOMOUS OF TRUNK INFECTED 12/14/2012 MATHEW VELÁZQUEZ APRN 911.5 INSECT BITE NONVENOMOUS OF TRUNK INFECTED 12/14/2012 DE LA CRUZ DO, KELY K 911.5 INSECT BITE NONVENOMOUS OF TRUNK INFECTED 12/14/2012 DE LA CRUZ DO, KELY K 911.5 INSECT BITE NONVENOMOUS OF TRUNK INFECTED 12/14/2012 DE LA CRUZ DO, KELY K 911.5 INSECT BITE NONVENOMOUS OF TRUNK INFECTED 12/14/2012 DE LA CRUZ DO, KELY K 911.5 INSECT BITE NONVENOMOUS OF TRUNK INFECTED 12/14/2012 DE LA CRUZ DO, KELY K 911.5 INSECT BITE NONVENOMOUS OF TRUNK INFECTED 12/14/2012 DE LA CRUZ DO, KELY K 911.5 INSECT BITE NONVENOMOUS OF TRUNK INFECTED 12/14/2012 DE LA CRUZ DO, KELY K 911.5 INSECT BITE NONVENOMOUS OF TRUNK INFECTED 12/14/2012 MATHEW VELÁZQUEZ APRN 911.5 INSECT BITE NONVENOMOUS OF TRUNK INFECTED 01/11/2013 DE LA CRUZ DO, KELY K 919.4 INSECT BITE NONVENOMOUS OF OTHER MULTIPLE AND UNSPECIFIED SITES WITHOUT INFECTION 01/11/2013 DE LA CRUZ DO, KELY K 919.4 INSECT BITE NONVENOMOUS OF OTHER MULTIPLE AND UNSPECIFIED SITES WITHOUT INFECTION 01/11/2013 DE LA CRUZ DO, KELY K 919.4 INSECT BITE NONVENOMOUS OF OTHER MULTIPLE AND UNSPECIFIED SITES WITHOUT INFECTION 01/11/2013 MATHEW VELÁZQUEZ APRN 919.4 INSECT BITE NONVENOMOUS OF OTHER MULTIPLE AND UNSPECIFIED SITES WITHOUT INFECTION 01/11/2013 DE LA CRUZ DO, KELY K 919.4 INSECT BITE NONVENOMOUS OF OTHER MULTIPLE AND UNSPECIFIED SITES WITHOUT INFECTION 01/11/2013 DE LA CRUZ DO, KELY K 919.4 INSECT BITE NONVENOMOUS OF OTHER MULTIPLE AND UNSPECIFIED SITES WITHOUT INFECTION 01/11/2013 DE LA CRUZ DO, KELY K 919.4 INSECT BITE NONVENOMOUS OF OTHER MULTIPLE AND UNSPECIFIED SITES WITHOUT INFECTION 01/11/2013 DE LA CRUZ DO, KELY K 919.4 INSECT BITE NONVENOMOUS OF OTHER MULTIPLE AND UNSPECIFIED SITES WITHOUT INFECTION 01/11/2013 DE LA CRUZ DO, KELY K 919.4 INSECT BITE NONVENOMOUS OF OTHER MULTIPLE AND UNSPECIFIED SITES WITHOUT INFECTION 01/11/2013 DE LA CRUZ DO, KELY K 919.4 INSECT BITE NONVENOMOUS OF OTHER MULTIPLE AND UNSPECIFIED SITES WITHOUT INFECTION 01/11/2013 DE LA CRUZ DO, KELY K 919.4 INSECT BITE NONVENOMOUS OF OTHER MULTIPLE AND UNSPECIFIED SITES WITHOUT INFECTION 01/11/2013 MATHEW VELÁZQUEZ APRN 919.4 INSECT BITE NONVENOMOUS OF OTHER MULTIPLE AND UNSPECIFIED SITES WITHOUT INFECTION 04/16/2013 DE LA CRUZ DO, KELY K 300.4 DYSTHYMIC DISORDER 04/16/2013 DE LA CRUZ DO, KELY K 300.4 DYSTHYMIC DISORDER 04/16/2013 MATHEW VELÁZQUEZ APRN 300.4 DYSTHYMIC DISORDER 04/16/2013 DE LA CRUZ DO, KELY K 300.4 DYSTHYMIC DISORDER 04/16/2013 DE LA CRUZ DO, KELY K 300.4 DYSTHYMIC DISORDER 04/16/2013 DE LA CRUZ DO, KELY K 300.4 DYSTHYMIC DISORDER 04/16/2013 DE LA CRUZ DO, KELY K 300.4 DYSTHYMIC DISORDER 04/16/2013 DE LA CRUZ DO, KELY K 300.4 DYSTHYMIC DISORDER 04/16/2013 DE LA CRUZ DO, KELY K 300.4 DYSTHYMIC DISORDER 04/16/2013 DE LA CRUZ DO, KELY K 300.4 DYSTHYMIC DISORDER 04/16/2013 MATHEW VELÁZQUEZ APRN 300.4 DYSTHYMIC DISORDER 07/12/2013 DE LA CRUZ DO, KELY K 110.5 TINEA CORPORIS 07/12/2013 DE LA CRUZ DO, KELY K 110.5 TINEA CORPORIS 07/12/2013 DE LA CRUZ DO, KELY K 110.5 TINEA CORPORIS 07/12/2013 DE LA CRUZ DO, KELY K 110.5 TINEA CORPORIS 07/12/2013 DE LA CRUZ DO, KELY K 110.5 TINEA CORPORIS 07/12/2013 DE LA CRUZ DO, KELY K 110.5 TINEA CORPORIS 07/12/2013 DE LA CRUZ DO, KELY K 110.5 TINEA CORPORIS 07/12/2013 MATHEW VELÁZQUEZ APRN 110.5 TINEA CORPORIS 01/09/2014 ALEX LANGSTON, GILL Jaramillo Ot 924.9 CONTUSION NOS 01/09/2014 ALEX LANGSTON, GILL Jaramillo Ot 959.01 HEAD INJURY, NOS 01/09/2014 ALEX LANGSTON, GILL Jaramillo Ot E000.8 OTHER EXTERNAL CAUSE STATUS 01/09/2014 GILL JOHNSON MD, Ot E849.6 ACCIDENT IN PUBLIC BLDG 01/09/2014 ALEX LANGSTON, GILL Jaramillo Ot E885.9 FALL FROM SLIPPING, TRIPPING, OR STUMBLI 01/14/2014 DE LA CRUZ DO KELY K 465.9 UPPER RESPIRATORY INFECTION 01/14/2014 DE LA CRUZ DO KELY K 850.11 CONCUSSION WITH LOSS OF CONSCIOUSNESS OF 30 MINUTES OR LESS 01/14/2014 DE LA CRUZ DO, KELY K 465.9 UPPER RESPIRATORY INFECTION 01/14/2014 DE LA CRUZ DO KELY K 850.11 CONCUSSION WITH LOSS OF CONSCIOUSNESS OF 30 MINUTES OR LESS 01/14/2014 DE LA CRUZ DO, KELY K 465.9 UPPER RESPIRATORY INFECTION 01/14/2014 DE LA CRUZ DO, KELY K 850.11 CONCUSSION WITH LOSS OF CONSCIOUSNESS OF 30 MINUTES OR LESS 01/14/2014 DE LA CRUZ DO KELY K 465.9 UPPER RESPIRATORY INFECTION 01/14/2014 DE LA CRUZ , KELY K 850.11 CONCUSSION WITH LOSS OF CONSCIOUSNESS OF 30 MINUTES OR LESS 01/14/2014 MATHEW VELÁZQUEZ APRN R 465.9 UPPER RESPIRATORY INFECTION 01/14/2014 MATHEW VELÁZQUEZ APRN R 850.11 CONCUSSION WITH LOSS OF CONSCIOUSNESS OF 30 MINUTES OR LESS 01/31/2014 DOROTHY NEWELL KELY K 356.9 NEUROPATHY 01/31/2014 DE LA CRUZ DO KELY K 356.9 NEUROPATHY 01/31/2014 DE LA CRUZ DO KELY K 356.9 NEUROPATHY 01/31/2014 MATHEW VELÁZQUEZ APRN R 356.9 NEUROPATHY 02/05/2014 Ot V76.12 02/12/2014 Ot V76.12 02/12/2014 MATHEW VELÁZQUEZ CFNP Ot 356.9 02/12/2014 MATHEW VELÁZQUEZ CFNP Ot 784.0 02/12/2014 MATHEW VELÁZQUEZ R CFNP Ot 850.11 02/12/2014 MATHEW VELÁZQUEZ CFNP Ot E000.8 02/12/2014 MATHEW VELÁZQUEZ CFNP Ot E849.6 02/12/2014 MATHEW VELÁZQUEZ CFNP Ot E885.9 02/12/2014 MATHEW VELÁZQUEZ CFNP Ot 356.9 02/12/2014 MATHEW VELÁZQUEZ CFNP Ot 784.0 02/12/2014 MATHEW VELÁZQUEZ CFNP Ot 850.11 02/12/2014 MATHEW VELÁZQUEZ CFNP Ot E000.8 02/12/2014 VELÁZQUEZ, MATHEW R CFNP Ot E849.6 02/12/2014 VELÁZQUEZ, MATHEW R CFNP Ot E885.9 02/18/2014 Ot V76.12 02/18/2014 VELÁZQUEZ, MATHEW R CFNP Ot 356.9 02/18/2014 VELÁZQUEZ, MATHEW R CFNP Ot 784.0 02/18/2014 VELÁZQUEZ, MATHEW R CFNP Ot 850.11 02/18/2014 VELÁZQUEZ, MATHEW R CFNP Ot E000.8 02/18/2014 VELÁZQUEZ, MATHEW R CFNP Ot E849.6 02/18/2014 VELÁZQUEZ, MATHEW R CFNP Ot E885.9 03/01/2014 Ot V76.12 03/01/2014 VELÁZQUEZ, MATHEW R CFNP Ot 356.9 03/01/2014 VELÁZQUEZ, MATHEW R CFNP Ot 784.0 03/01/2014 VELÁZQUEZ, MATHEW R CFNP Ot 850.11 03/01/2014 VELÁZQUEZ, MATHEW R CFNP Ot E000.8 03/01/2014 VELÁZQUEZ, MATHEW R CFNP Ot E849.6 03/01/2014 VELÁZQUEZ, MATHEW R CFNP Ot E885.9 04/17/2015 VELÁZQUEZ, MATHEW R CFNP Ot 356.9 04/17/2015 VELÁZQUEZ, MATHEW R CFNP Ot 784.0 04/17/2015 VELÁZQUEZ, MATHEW R CFNP Ot 850.11 04/17/2015 VELÁZQUEZ, MATHEW R CFNP Ot E000.8 04/17/2015 VELÁZQUEZ, MATHEW R CFNP Ot E849.6 04/17/2015 VELÁZQUEZ, MATHEW R CFNP Ot E885.9 04/28/2015 VELÁZQUEZ, MATHEW R CFNP Ot 356.9 04/28/2015 VELÁZQUEZ, MATHEW R CFNP Ot 784.0 04/28/2015 VELÁZQUEZ, MAHTEW R CFNP Ot 850.11 04/28/2015 VELÁZQUEZ, MATHEW R CFNP Ot E000.8 04/28/2015 VELÁZQUEZ, MATHEW R CFNP Ot E849.6 04/28/2015 VELÁZQUEZ, MATHEW R CFNP Ot E885.9 04/30/2016 VELÁZQUEZ, MATHEW R CFNP Ot 356.9 IDIO PERIPH NEURPTHY NOS 04/30/2016 MATHEW VELÁZQUEZ CFNP Ot 784.0 HEADACHE 04/30/2016 MATHEW VELÁZQUEZ CFNP Ot 850.11 CONCUSSION, W LOSS OF CONSCIOUSNESS OF 3 04/30/2016 MATHEW VELÁZQUEZ CFNP Ot E000.8 OTHER EXTERNAL CAUSE STATUS 04/30/2016 MATHEW VELÁZQUEZ CFNP Ot E849.6 ACCIDENT IN PUBLIC BLDG 04/30/2016 MATHEW VELÁZQUEZ CFNP Ot E885.9 FALL FROM SLIPPING, TRIPPING, OR STUMBLI 11/30/2016 MATHEW VELÁZQUEZ CFNP Ot 356.9 IDIO PERIPH NEURPTHY NOS 11/30/2016 MATHEW VELÁZQUEZ CFNP Ot 784.0 HEADACHE 11/30/2016 MATHEW VELÁZQUEZ CFNP Ot 850.11 CONCUSSION, W LOSS OF CONSCIOUSNESS OF 3 11/30/2016 MATHEW VELÁZQUEZ CFNP Ot E000.8 OTHER EXTERNAL CAUSE STATUS 11/30/2016 MATHEW VELÁZQUEZ CFNP Ot E849.6 ACCIDENT IN PUBLIC BLDG 11/30/2016 MATHEW VELÁZQUEZ CFNP Ot E885.9 FALL FROM SLIPPING, TRIPPING, OR STUMBLI 11/30/2016 MATHEW VELÁZQUEZ CFNP Ot M54.10 RADICULOPATHY, SITE UNSPECIFIED Procedures Code [place] [address] THERAPUTIC INJ SQ/IM 10/30/2012 J1040 DEPO MEDROL 80 MG INJ 10/30/2012 J3301 KENALOG INJ, PER 10 MG 10/30/2012 85500 MRI BRAIN W/O & W/DYE 01/31/2014 73656 MRI SPINE (CERVICAL) W/O CONTRAST 01/31/2014 80601 CREATININE 2013 30949 BUN 01/31/2014 Neurology Maya Smith 02/12/2014 Results Encounters ACCT No. Visit Date/Time Discharge Status Pt. Type Provider Facility Loc./Unit Complaint [id number] 04/08/2014 15:13:00 04/08/2014 23: 59:59 [facility] Outpatient VELÁZQUEZ NARESH MATHEW Shen [id number] 03/25/2014 15:44:00 03/25/2014 23: 59:59 [facility] Outpatient KELY DE LA CRUZ DO [id number] 02/12/2014 14:26:00 02/12/2014 23: 59:59 CLS Outpatient DE LA CRUZ DOKELY [id number] 01/31/2014 14:35:00 01/31/2014 23: 59:59 CLS Outpatient DE LA CRUZ DOKELY [id number] 01/14/2014 14:39:00 01/14/2014 23: 59:59 CLS Outpatient DE LA CRUZ DOKELY [id number] 12/20/2013 11:23:00 12/20/2013 23: 59:59 CLS Outpatient DE LA CRUZ DOKELY [id number] 08/28/2013 14:14:00 08/28/2013 23: 59:59 CLS Outpatient DE LA CRUZ DOKELY [id number] 07/12/2013 13:22:00 07/12/2013 23: 59:59 CLS Outpatient DE LA CRUZ DOKELY [id number] 06/19/2013 13:30:00 06/19/2013 23: 59:59 CLS Outpatient MATHEW VELÁZQUEZ APRN [id number] 05/17/2013 13:39:00 05/17/2013 23: 59:59 CLS Outpatient DE LA CRUZ DOKELY [id number] 04/16/2013 17:48:00 04/16/2013 23: 59:59 CLS Outpatient DE LA CRUZ DOKELY [id number] 01/11/2013 16:21:00 01/11/2013 23: 59:59 CLS Outpatient DE LA CRUZ DOKELY [id number] 12/14/2012 14:37:00 12/14/2012 23: 59:59 CLS Outpatient DE LA CRUZ DOKELY [id number] 10/30/2012 16:18:00 10/30/2012 23: 59:59 CLS Outpatient DE LA CRUZ DOKELY [id number] 01/20/2012 13:36:00 01/20/2012 23: 59:59 CLS Outpatient [id number] 10/16/2012 12:13:00 Document Registration [id number] 07/28/2012 15:19:00 Document Registration [id number] 05/02/2012 09:57:00 Document Registration [id number] 04/28/2015 10:59:00 2015 23:59:59 CLS Outpatient MATHEW VELÁZQUEZ [facility] RAD BACK PAIN, [id number] 02/05/2014 13:45:00 2013 23:59:59 CLS Outpatient MATHEW VELÁZQUEZNP [facility] RAD NERUROPATHY, HEADACHES [id number] 01/09/2014 15:37:00 2013 18:13:00 DIS Emergency GILL JOHNSON MD [facility] ER FALL,DENNIS,L SIDE PAIN [id number] 12/10/2016 12:00:00 PEN Preadmit SANCHO UMANZOR MD [facility] ENDO SCREENING/REFLUX [id number] 02/05/2014 13:55:00 Document Registration [id number] 02/05/2014 13:55:00 Document Registration [id number] 02/05/2014 13:55:00 Document Registration [id number] 10/05/2011 10:50:00 Document Registration [id number] 02/20/2009 12:53:00 Document Registration
[2016-12-10] MEDS ORDERED: HURRICAINE EXT TUBE (BENZOCAINE) XX PRN (11:45)
[2016-12-10] MEDS ORDERED: NS IV 500 ML 500 ML IV PRN (11:45)
[2016-12-10] MEDS ORDERED: LIDOCAINE JELLY 2% (XYLOCAINE) 5 ML TUBE MM PRN (11:45)
--- NOTE | 2016-12-10 11:51 | Conscious Sedation/ASA ---
Conscious Sedation Pre-Proced Time Reviewed: 11:50 ASA Class: 2 Airway Mallampati Classification: ([place] appropriate class) I. II. III, IV Lungs Heart ASA score ASA 1: a normal healthy patient ASA 2: a patient with a mild systemic disease (mid diabetes, controlled hypertension, obesity ASA 3: a patient with a severe systemic disease that limits activity (angina , COPD, prior Myocardial infarction) ASA 4: a patient with an incapacitating disease that is a constant threat to life (CHF, renal failure) ASA 5: a moribund patient not expected to survive 24 hrs. (ruptured aneurysm) ASA 6: a declared brain patient whose organs are being harvested. For emergent operations, add the letter E after the classification Grade 2 Sedation Plan: Analgesia, Amnesia, Plan communicated to team members, Discussed options with patient/fam, Discussed risks with patient/fam Note The patient is an appropriate candidate to undergo the planned procedure, sedation, and anesthesia. The patient immediately re-assessed prior to indication. SANCHO UMANZOR MD Dec 10, 2016 11:51 am
--- NOTE | 2016-12-10 11:52 | Progress Note-Pre Operative ---
Pre-Operative Progress Note H&P Reviewed The H&P was reviewed, patient examined and no changes noted. Date Seen by Provider: Dec 10, 2016 Time Seen by Provider: 11:50 Date H&P Reviewed: Dec 10, 2016 Time H&P Reviewed: 11:50 Pre-Operative Diagnosis: screening colonoscopy, GERD SANCHO UMANZOR MD Dec 10, 2016 11:52 am
[2016-12-10] MEDS ORDERED: morphine INJ 10 MG/ML 1ML (SYR OR VIAL) IV PRN (12:00)
[2016-12-10] MEDS ORDERED: HYDROcodone/APAP 5 MG/325 MG (LORTAB) TAB PO PRN (12:00)
[2016-12-10] MEDS ORDERED: ONDANSETRON 4 MG/2 ML (SDV) Z0FRAN IV PRN (12:00)
[2016-12-10] MEDS ORDERED: ACETAMINOPHEN 325 MG TABLET/CAPLET (TYLENOL) PO PRN (12:00)
[2016-12-10 12:15] VITALS: BP 134/83
[2016-12-10] MEDS ORDERED: LIDOCAINE JELLY 2% (XYLOCAINE) 5 ML TUBE ONE (12:20)
[2016-12-10] MEDS ORDERED: fentaNYL INJECTION 100 MCG/2 ML AMP ONE ×3 (12:20→12:33)
[2016-12-10] MEDS ORDERED: MIDAZOLAM 2 MG/2 ML (VERSED) VIAL ONE ×8 (12:21→12:34)
[2016-12-10] MEDS ORDERED: HURRICAINE EXT TUBE (BENZOCAINE) ONE (12:21)
[2016-12-10] MEDS: fentaNYL INJECTION 100 MCG/2 ML AMP IVP PRN ×4 (12:32→12:55)
[2016-12-10] MEDS: MIDAZOLAM 2 MG/2 ML (VERSED) VIAL IVP PRN ×6 (12:33→12:58)
[2016-12-10 13:20] VITALS: BP 97/72
--- NOTE | 2016-12-10 13:25 | Progress Note-Post Operative ---
Post-Operative Progess Note Surgeon (s)/Building Services Technician (s) Surgeon SANCHO UMANZOR MD Building Services Technician: none Pre-Operative Diagnosis screening colonoscopy, GERD Post-Operative Diagnosis reflux esophagitis(class B-C), recurrent moderate sized HH(3cm), moderate gastritis. chronic stage 2-3 ext and int hemorrhoids, moderate sigmoid diverticulosis. Procedure & Operative Findings Date of Procedure 12/10/16 Procedure Performed/Findings EGD with bx. Colonoscopy. Anesthesia Type CS Estimated Blood Loss Estimated blood loss (mL): minimal Specimens/Packing Specimens Removed GE jxn, antrum SANCHO UMANZOR MD Dec 10, 2016 1:25 pm
[2016-12-10] MEDS ORDERED: SUCR1TAB36 PO (13:26)
[2016-12-10] MEDS ORDERED: PANT40TA2 PO (13:26)
--- NOTE | 2016-12-10 13:27 | Discharge Inst-Surgical ---
D/C Lap Instructions-DUSTYO New, Converted, or Re-Newed RX: RX on Chart Follow Up Appt in 6 weeks Activity as tolerated No driving for 24 hours No driving while on pain medications Incentive Spirometry use every 2 hours while awake High Fiber Diet 25g or more per day Avoid Alcohol, Caffeine, Spicy [place] and Acid foods. Drink 64 fluid oz or more of fluids per day. Symptoms to Report: Fever over 101 degree F, Nausea/Vomiting If any problems/questions: Contact your physician or go to Emergency Room SANCHO UMANZOR MD Dec 10, 2016 1:27 pm
[2016-12-10 13:55] VITALS: BP 105/73
[2016-12-10 14:05] VITALS: BP 105/73
--- NOTE | 2016-12-10 20:11 | OPERATIVE REPORT ---
DATE OF SERVICE: 12/10/2016 ATTENDING PRIMARY CARE PHYSICIAN: JEFF Olmstead. PREOPERATIVE DIAGNOSIS: Recurrent gastroesophageal reflux disease, screening colonoscopy. POSTOPERATIVE DIAGNOSIS: Reflux esophagitis appears to be between class B and C, recurrent hiatal hernia, approximately 3 cm in size, moderate gastritis. Chronic between stage II and III external and internal hemorrhoids, moderate sigmoid diverticulosis. PROCEDURE: EGD with biopsy, colonoscopy. SURGEON: Dr. Driscoll. ANESTHESIA: Conscious sedation. ESTIMATED BLOOD LOSS: Minimal. FINDINGS: EGD reflux esophagitis between class B and C, recurrent hiatal hernia approximately 3 cm in size, moderate severity gastritis. Pylorus and duodenum appeared normal. Colonoscopy chronic between stage II and III external and internal hemorrhoids, not actively edematous nor bleeding. Moderate sigmoid diverticulosis. Remainder of the colon was normal. There were no polyps identified. DISPOSITION: The patient tolerated the procedure well. The patient is a 66-year-old female with recurrent episodes of gastroesophageal reflux disease. She reports that she did have consistent reflux type of symptoms and underwent a hiatal hernia repair and an antireflux procedure around 2007. She reports that approximately one year later she did have episodes of retching and since that time she has had recurrent reflux. She has been taking Prilosec since that time. She also is in need of a colonoscopy. Her last one was approximately 10 years ago and it was normal from what she recalls. DESCRIPTION OF PROCEDURE: The patient was brought to the endoscopy suite, laid in the left lateral decubitus position with the head slightly elevated. After adequate IV pain and sedating medications and conscious sedation anesthesia, the mouthpiece was applied. Endoscope was placed in the mouth, visualizing the pharynx and the hypopharyngeal region. Vocal cords, epiglottis and vallecula identified and appeared to be normal. The endoscope was then gently intubated in the esophageal opening, esophagus insufflated. The endoscope was then advanced through the 1st, 2nd and 3rd portions of the esophagus at the level of the GE junction, and reflux esophagitis between class B and C identified. There were no ulcers or strictures identified. A biopsy was taken with forceps with visualization of good hemostasis. The endoscope was then easily advanced in the stomach and then endoscope retroflexed, visualizing a recurrent hiatal hernia approximately 3 cm in size. There was also moderate severity gastritis. No formal ulcers, polyps or any neoplasms identified. A biopsy was taken of the stomach antrum with forceps with visualization of good hemostasis. The endoscope was then advanced to the pylorus and the first and second portions of the duodenum, which appeared normal. No distal obstructions identified. The endoscope was then slowly withdrawn while taking a second look and suctioning residual air with no additional findings. The patient tolerated the procedure well. We will have her continue with medical management with the necessary lifestyle and diet accommodations including small and more frequent meals, avoidance of eating at night as well as head elevation while laying supine. She also needs to avoid caffeinated beverages, spicy, greasy and acidic foods. We will also start her on Protonix 40 mg daily, as well as Carafate 1 gram q.i.d. for the next two weeks on a p.r.n. basis. Under the same conscious sedation anesthesia, we then proceeded with the colonoscopy portion of the procedure. A digital rectal examination was performed, which revealed chronic between stage II and III external and internal hemorrhoids, not actively edematous nor inflamed and no bleeding. Normal sphincter tone was felt and there were no palpable masses. The endoscope was then intubated to the anus and rectum and gently insufflated. The endoscope was then advanced through the valves of [place] in the rectum with no polyps or any neoplasms identified. We then proceeded through the sigmoid colon where a moderate sigmoid diverticulosis was identified. There were no mucosal inflammatory changes to indicate any active diverticulitis. The endoscope was then advanced to the remainder of the descending, transverse, and ascending colon to the cecum. These segments were normal. There were no polyps or any neoplasms identified throughout the colon or rectum. The endoscope was then slowly withdrawn while taking a second look and suctioning of residual air with no additional findings. The patient tolerated this portion of the procedure well. We will recommend a high fiber diet with at least 25 grams of fiber per day as well as at least 64 fluid ounces of water daily to promote soft stools on a daily basis. No polyps were identified. She does not need another colonoscopy for another 10 years; however, sooner if any problems arise. Job ID: [id number] DocumentID: [id number] Dictated Date: 12/10/2016 13:19:39 Remelt Operator Date: 12/10/2016 20:10:34 Dictated By: MD NIMA GREENE
== END 2016-12-10 14:05 | disposition home or self-care (01) ==
LOC: ENDO 11:33
PROVIDERS: ATTEND Surgery
DX: Z12.11 Encounter for screening for malignant neoplasm of colon (principal); K57.30 Diverticulosis of large intestine without perforation or abscess without bleeding; K64.1 Second degree hemorrhoids; K21.0 Gastro-esophageal reflux disease with esophagitis; K44.9 Diaphragmatic hernia without obstruction or gangrene; K29.70 Gastritis, unspecified, without bleeding; F32.9 Major depressive disorder, single episode, unspecified; G47.30 Sleep apnea, unspecified; Z87.891 Personal history of nicotine dependence; Z79.899 Other long term (current) drug therapy

== ENCOUNTER → 2017-01-24 | Outpatient (CLI) | payer BC ==
[~2017-01-24] MED LIST changes: +PANT40TA2 PO; +SUCR1TAB36 PO
--- NOTE | 2017-01-26 10:47 | Diagnostic Imaging Report ---
EXAMINATION: Bilateral screening mammogram 2D views with tomosynthesis. The current study was also evaluated with a Computer Aided Detection (CAD) system. INDICATION: Screening. PERSONAL HISTORY: No current complaints stated on the questionnaire. COMPARISON: 02/16/2012. FINDINGS: The breasts are composed of scattered fibroglandular densities. Occasional benign-appearing calcifications are noted. Allowing for technique and positional differences, no suspicious change is seen. IMPRESSION: No significant change. ACR BI-RADS Category 2: Benign findings. Result letter will be mailed to the patient. Note: At least 10% of breast cancer is not imaged by mammography. Dictated by: Dictated on workstation # [id number]
== END ==
LOC: RAD 15:33
PROVIDERS: ATTEND Nurse Practitioner Family
DX: Z12.31 Encounter for screening mammogram for malignant neoplasm of breast (principal)
CPT/HCPCS: 77067

== ENCOUNTER 2018-06-10 20:55 | Outpatient (CLI) | payer MEDICARE, OTHER | END 2018-06-11 07:07 | disposition home or self-care (01) | LOC: SLEEP 20:55 | PROVIDERS: ATTEND Nurse Practitioner Family | DX: G47.33 Obstructive sleep apnea (adult) (pediatric) (principal); G47.61 Periodic limb movement disorder; G47.00 Insomnia, unspecified; F39 Unspecified mood [affective] disorder; R06.3 Periodic breathing | CPT/HCPCS: 95810 ==

== ENCOUNTER → 2018-06-27 | Outpatient (CLI) | payer MEDICARE, OTHER ==
[2018-06-27 10:51] LABS: HEMOGLOBIN 14.8 G/DL (11.5-16.0); RED CELL DISTRIBUTION WIDTH 13.9 % (10.0-14.5); WHITE BLOOD COUNT 6.7 10^3/uL (4.3-11.0)
== END ==
LOC: LAB 10:31
PROVIDERS: ATTEND Otolaryngology Otolaryngology/Facial Plastic Surgery
DX: R53.83 Other fatigue (principal); G25.81 Restless legs syndrome
CPT/HCPCS: 36415; 82728; 85027

== ENCOUNTER → 2018-06-27 | Outpatient (CLI) | payer MEDICARE, OTHER ==
--- NOTE | 2018-06-27 14:34 | Diagnostic Imaging Report ---
INDICATION: Screening for osteoporosis. COMPARISON: None. FINDINGS: The bone mineral density of the hips and spine was measured. The T score for the spine is -1.5. This value does indicate osteopenia. The total T score for the left hip is -0.7 and for the right hip -0.9. These values are within normal limits. However, the T score for left femoral neck is -1.4 and for the right femoral neck -1.3. These T score values indicate osteopenia. AP Spine L1-L4: [BMD (g/cm2): 1.0108] [T-Score: -1.5] [Z-Score: -1.0] [BMD Previous: N/A] [BMD % Change: N/A] LT Hip Neck: [BMD (g/cm2): 0.849] [T-Score: -1.4] [Z-Score: -0.6] LT Hip Total: [BMD (g/cm2):0.925] [T-Score:-0.7] [Z-Score: -0.2] [BMD Previous: N/A] [BMD % Change: N/A] RT Hip Neck: [BMD (g/cm2):0.851] [T-Score:-1.3] [Z-Score:-0.5] RT Hip Total: [BMD (g/cm2):0.895] [T-score:-0.9] [Z-Score:-0.4] [BMD Previous:N/A] [BMD % Change:N/A] *Indicates significant change from prior examination based on 95% confidence level. World Health Organization criteria for BMD interpretation classify patients as Normal (T-score at or above -1.0), Osteopenic (T-score between -1.0 and -2.5) or Osteoporotic (T-score at or below -2.5). LIMITATIONS AND MODIFICATION: None. FRACTURE RISK (FRAX SCORE): The ten year probability of (%): Major Osteoporotic Fracture: [N/A] Hip Fracture: [N/A] IMPRESSION: 1. There is osteopenia of the spine and both femoral necks. 2. See below National Osteoporosis Foundation guidelines on when to potentially initiate pharmacologic therapy. Based on the National Osteoporosis Foundation Guidelines, pharmacologic treatment should be initiated in any of the following, unless clinical conditions suggest otherwise: * Any patient with prior fragility fracture of the hip or vertebrae. A spine fracture indicates 5X risk for subsequent spine fracture and 2X risk for subsequent hip fracture. * Osteoporosis (T-score <-2.5). * Postmenopausal women and men age 50 and older with low bone mass/osteopenia (T-score between -1.0 and -2.5) by DXA and 10-year major osteoporotic fracture greater than 20% or a 10-year probability of hip fracture greater than 3%. These fracture risks are supplied above in the FRAX score, if applicable. * Clinician judgement and/or patient preferences may indicate treatment for people with 10-year fracture probabilities above or below these levels. Dictated by: Dictated on workstation # [id number]
--- NOTE | 2018-06-27 17:58 | Diagnostic Imaging Report ---
INDICATION: Routine screening. Comparison is made with prior mammograms from 01/24/2017 and 02/16/2012. 2-D and 3-D bilateral screening mammography was performed with Computer-Aided Detection (CAD) system. FINDINGS: Scattered fibroglandular densities are identified bilaterally. Benign calcifications are noted bilaterally. Intraparenchymal lymph nodes in the outer portions of both breasts appear stable. No mass or malignant-appearing microcalcifications are seen. The axillae are unremarkable. IMPRESSION: No mammographic features suspicious for malignancy are identified. ACR BI-RADS Category 2: Benign findings. Result letter will be mailed to the patient. Note: At least 10% of breast cancer is not imaged by mammography. Dictated by: Dictated on workstation # [id number]
== END ==
LOC: RAD 09:33
PROVIDERS: ATTEND Nurse Practitioner Family
DX: Z12.31 Encounter for screening mammogram for malignant neoplasm of breast (principal); Z13.820 Encounter for screening for osteoporosis; M85.89 Other specified disorders of bone density and structure, multiple sites
CPT/HCPCS: 77067; 77080

== ENCOUNTER → 2020-02-05 | Outpatient (CLI) | payer MEDICARE, OTHER ==
[~2020-02-05] MED LIST changes: -MINO100C2 PO; +MINO100C5 PO; -OMEP20CA12 PO; +OMEP20CA18 PO
--- NOTE | 2020-02-05 16:15 | Diagnostic Imaging Report ---
INDICATION: Screening. TECHNIQUE: The current study was also evaluated with a Computer Aided Detection (CAD) system. 3-D Tomographic imaging was also performed. COMPARISON: 06/27/2018 and 01/24/2017. FINDINGS: There are scattered fibroglandular densities bilaterally. There are benign type calcifications. There is an unchanged nodular density in the upper-outer right breast. There is no new dominant mass, spiculated lesion, or suspicious calcification identified. The skin, nipples, and axillae are unremarkable. IMPRESSION: Benign findings as above. ACR BI-RADS Category 2: Benign findings. Result letter will be mailed to the patient. Note: At least 10% of breast cancer is not imaged by mammography. Dictated by: Dictated on workstation # [id number]
== END ==
LOC: RAD 15:12
PROVIDERS: ATTEND Nurse Practitioner Family
DX: Z12.31 Encounter for screening mammogram for malignant neoplasm of breast (principal)
CPT/HCPCS: 77063; 77067

== ENCOUNTER → 2021-10-13 | Outpatient (CLI) | payer MEDICARE, OTHER ==
[~2021-10-13] MED LIST changes: +CYCL10TA25 PO; -CYCL10TA9 PO
--- NOTE | 2021-10-13 15:35 | Diagnostic Imaging Report ---
EXAMINATION: Chest 2 view HISTORY: UPPER EXTREMITY ITCHING COMPARISON: None available. FINDINGS: Heart size and pulmonary vasculature are normal. The lungs are clear without consolidation, pleural effusion, or pneumothorax. The osseous structures are intact. A presumed hiatal hernia is present overlying the lower heart. IMPRESSION: 1. No acute radiographic abnormality in the chest. Dictated by: Dictated on workstation # [id number]
== END ==
LOC: RAD 14:28
PROVIDERS: ATTEND Student in an Organized Health Care Education/Training Program
DX: L29.9 Pruritus, unspecified (principal)
CPT/HCPCS: 71046

== ENCOUNTER → 2021-11-09 | Outpatient (CLI) | payer MEDICARE, OTHER ==
--- NOTE | 2021-11-09 15:59 | Diagnostic Imaging Report ---
PROCEDURE: MR imaging of the brain without contrast. TECHNIQUE: Multiplanar, multisequence MR imaging of the brain was performed without contrast. INDICATION: Chronic itching. No identifiable cause. Evaluate for abnormal intracranial process. COMPARISON: 02/05/2014. FINDINGS: No acute ischemia, mass, or hemorrhage. A small amount of focal T2 hyperintense signal seen in the subcortical white matter. The ventricles, cortical sulci, and basilar cisterns are symmetric and unremarkable. The sellar and suprasellar regions have a normal appearance. The brainstem and posterior fossa are unremarkable. Mucous retention cyst is seen in the left maxillary sinus. The mastoid air cells demonstrate normal signal characteristics. The globes and orbits are symmetric and unremarkable. The scalp and calvarium have a normal appearance. IMPRESSION: 1. No acute ischemia, mass, or hemorrhage. 2. Scattered chronic microvascular disease in the periventricular and subcortical white matter. 3. Mucous retention cyst in the left maxillary sinus. Dictated by: Dictated on workstation # [id number]
== END ==
LOC: RAD 14:44
PROVIDERS: ATTEND Student in an Organized Health Care Education/Training Program
DX: L50.8 Other urticaria (principal); M27.40 Unspecified cyst of jaw; R90.82 White matter disease, unspecified
CPT/HCPCS: 70551

== ENCOUNTER → 2021-12-03 | Outpatient (CLI) | payer MEDICARE, OTHER ==
--- NOTE | 2021-12-03 17:24 | Diagnostic Imaging Report ---
EXAMINATION: Chest 2 view HISTORY: Cough COMPARISON: 10/13/2021 FINDINGS: The lungs are clear without edema or pneumonia. No pleural effusion or pneumothorax. Heart size is normal. There is a moderate-sized hiatal hernia. IMPRESSION: 1. Clear lungs. Dictated by: Dictated on workstation # [id number]
== END ==
LOC: RAD 15:44
PROVIDERS: ATTEND Nurse Practitioner Family
DX: R05.2 Subacute cough (principal)
CPT/HCPCS: 71046

== ENCOUNTER → 2022-02-01 | Outpatient (CLI) | payer MEDICARE, OTHER ==
--- NOTE | 2022-02-02 14:12 | Diagnostic Imaging Report ---
INDICATION: Routine screening. COMPARISON: 02/05/2020 and 06/27/2018. TECHNIQUE: 2D and 3D bilateral screening mammography was performed with CAD. FINDINGS: Scattered fibroglandular densities are identified bilaterally. Benign-appearing nodular densities in both breasts appear stable. No new mass or malignant-appearing microcalcifications are seen. There are benign calcifications. The axillae are unremarkable. IMPRESSION: No mammographic features suspicious for malignancy are identified. ACR BI-RADS Category 2: Benign findings. Result letter will be mailed to the patient. Note: At least 10% of breast cancer is not imaged by mammography. Dictated by: Dictated on workstation # [id number]
== END ==
LOC: RAD 15:34
PROVIDERS: ATTEND Student in an Organized Health Care Education/Training Program
DX: Z12.31 Encounter for screening mammogram for malignant neoplasm of breast (principal)
CPT/HCPCS: 77063; 77067

== ENCOUNTER → 2022-03-26 | Outpatient (CLI) | payer MEDICARE, OTHER ==
[~2022-03-26] VITALS: Ht 175.3 cm; Wt 100.0 kg
[~2022-03-26] MED LIST changes: +BUPR150T9 PO; +DUPI300P SQ; +HYDR-3584 PO; +LEVO75TA6 PO; +MONT-40 PO; +VNL37.5T PO
== END | disposition home or self-care (01) ==
LOC: PREOP 05:28
PROVIDERS: ATTEND Podiatrist Foot & Ankle Surgery
DX: Z01.818 Encounter for other preprocedural examination (principal); M20.22 Hallux rigidus, left foot

== ENCOUNTER 2022-04-02 10:27 | Day surgery (SDC) | payer MEDICARE, OTHER ==
[~2022-04-02] VITALS: Ht 175 cm; Wt 100.0 kg
[2022-04-02] VITALS (11 sets, daily range): BP systolic 102–129; BP diastolic 63–91
[2022-04-02] MEDS ORDERED: LACTATED RINGERS 1,000 ML IV PRN (10:45)
[2022-04-02] MEDS ORDERED: ceFAZolin INJECTION 1,000 MG in NS (IVPB) 50 ML IV ONE (10:45)
[2022-04-02] MEDS ORDERED: LIDOCAINE 1% INJ 20 ML VIAL ONE (11:29)
[2022-04-02] MEDS ORDERED: BUPIVACAINE 0.5% 30 ML (SENSORCAINE) VIAL ONE (11:30)
[2022-04-02] MEDS ORDERED: fentaNYL INJ 100 MCG/2 ML AMP ONE (11:46)
[2022-04-02] MEDS ORDERED: proPOfol 200 MG/20 ML (DIPRIVAN) VIAL IV ONE (11:46)
[2022-04-02] MEDS ORDERED: ONDANSETRON 4 MG/2 ML (SDV) Z0FRAN ONE (11:46)
[2022-04-02] MEDS ORDERED: LIDOCAINE PF 2% 5 ML (XYLOCAINE) VIAL ONE (11:46)
[2022-04-02] MEDS ORDERED: MIDAZOLAM 2 MG/2 ML (VERSED) VIAL ONE (11:46)
--- NOTE | 2022-04-02 11:52 | Progress Note-Pre Operative ---
Pre-Operative Progress Note Date of Available H&P: Apr 02, 2022 Date H&P Reviewed: Apr 02, 2022 Time H&P Reviewed: 11:52 Pre-Operative Diagnosis: Hallux Rigidus, left foot ZECHARIAH BURDEN DPMaximo Apr 02, 2022 11:52
[2022-04-02] MEDS ORDERED: LIDOCAINE 1% INJ 20 ML VIAL IJ ONE (12:30)
[2022-04-02] MEDS ORDERED: BUPIVACAINE 0.5% 30 ML (SENSORCAINE) VIAL INJ ONE (12:34)
[2022-04-02] MEDS ORDERED: SEVOFLURANE (ULTANE) 15 ML INHAL SOLN ONE (12:36)
--- NOTE | 2022-04-02 12:55 | Progress Note-Post Operative ---
Post-Operative Progess Note Surgeon (s)/Detective Narcotics And Vice (s) Surgeon ZECHARIAH BURDEN DPM Detective Narcotics And Vice: none Pre-Operative Diagnosis Hallux Rigidus, left foot Post-Operative Diagnosis same Procedure & Operative Findings Date of Procedure 04/02/22 Procedure Performed/Findings Cheilectomy, left Anesthesia Type General Estimated Blood Loss Estimated blood loss (mL): Minimal Specimens/Packing Specimens Removed bone from left 1st metatarsal head ZECHARIAH BUDREN DPM Apr 02, 2022 12:55
--- NOTE | 2022-04-02 12:57 | Anesthesia-General Post-Op ---
General Patient Condition Mental Status/LOC: Same as Preop Cardiovascular: Satisfactory Nausea/Vomiting: Absent Respiratory: Satisfactory Pain: Controlled Complications: Absent Post Op Complications Complications None Follow Up Care/Instructions Patient Instructions None needed. Anesthesia/Patient Condition Patient Condition Patient is doing well, no complaints, stable vital signs, no apparent adverse anesthesia problems. No complications reported per nursing. MAY CARVAJAL CRNA Apr 02, 2022 12:57
[2022-04-02] MEDS ORDERED: ACHD5005 PO (12:58)
[2022-04-02] MEDS ORDERED: HYDROcodone/APAP 5 MG/325 MG (LORTAB) TAB PO PRN (13:00)
[2022-04-02] MEDS ORDERED: fentaNYL INJ 100 MCG/2 ML AMP IVP ONE (13:00)
[2022-04-02] MEDS ORDERED: LACTATED RINGERS 1,000 ML IV SCH (13:00)
[2022-04-02] MEDS ORDERED: ONDANSETRON 4 MG/2 ML (SDV) Z0FRAN IVP PRN (13:00)
--- NOTE | 2022-04-02 17:26 | Diagnostic Imaging Report ---
IMPRESSION: Left foot, two views. 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 No acute fracture. No dislocation. There is soft tissue swelling overlying the dorsum of the foot. Small heel spur is present. IMPRESSION: 1. Soft tissue swelling overlying the dorsum of the foot, no acute fracture. Dictated by: Dictated on workstation # [id number]
--- NOTE | 2022-04-02 22:49 | OPERATIVE REPORT ---
DATE OF SERVICE: 04/02/2022 SURGEON: Andreea Burden DPM PREOPERATIVE DIAGNOSIS: Hallux rigidus, left. POSTOPERATIVE DIAGNOSIS: Hallux rigidus, left. PROCEDURE: Cheilectomy, left foot. WOUND CLASS: Clean. ANESTHESIA: General. HEMOSTASIS: Pneumatic thigh tourniquet at 250 mmHg. INDICATIONS: This 71-year-old female presents complaining of painful left great toe joint. Conservative therapy has met with unsatisfactory results and the patient is agreeable to surgical intervention after risks and complications were discussed at length. No guarantees were extended to the patient and she is willing to proceed. DESCRIPTION OF PROCEDURE: The patient was brought back to the operating room and placed in secure supine position. Appropriate timeout was performed. A general anesthetic was then induced. A pneumatic thigh tourniquet was placed on the left lower extremity over several layers of padding. The left foot was anesthetized utilizing 12 mL of 1:1 mixture of 1% Xylocaine and 0.5% Marcaine injected in a Paredes block. The left foot was then prepped and draped in the normal sterile manner. The left foot was then elevated and allowed to exsanguinate after which the tourniquet was inflated to 250 mmHg. Attention was then directed to the dorsal aspect of the first metatarsophalangeal joint where a 5 cm longitudinal linear incision was created. The incision was deepened in the same plane with great care to identify and retract all vital neurovascular structures. Only necessary blood vessels were cauterized as encountered. The incision was deepened down to the capsular tissue where a longitudinal capsulotomy was performed. This exposed the hypertrophic dorsal eminence to the first metatarsal head and the base of the proximal phalanx. These areas were resected utilizing a power sagittal saw. The medial eminence of the first metatarsal head was also resected with a power sagittal saw. Attention was directed to the head of the first metatarsal where approximately 60% of the articular cartilage to the dorsal medial aspect was devoid of any hyaline cartilage. A full-thickness degeneration was then identified. The area was fenestrated utilizing a 1.0 drill. The purpose of this was to induce bleeding into the joint and allow for development of fibrocartilage. A similar finding was noted to the dorsal medial aspect of the base of the proximal phalanx, which was devoid of articular cartilage. This too was fenestrated with a 1.0 drill. The wound was flushed with copious amounts of normal saline. There was approximately 45 degrees of dorsiflexion appreciated with the right first metatarsophalangeal joint. This is much improved over preoperative evaluation. The wound was flushed once again after which closure was performed in layers. Deep closure was performed with 3-0 Vicryl, superficial with 4-0 Vicryl, skin closed with 4-0 Prolene in a horizontal mattress type stitch. Postoperative dressing consisted of Betadine-soaked Adaptic, sterile 4 x 4's, sterile Kerlix all secured with a Coban wrap. The patient tolerated the anesthesia and procedure well and was transported from the operating room to the recovery room with vital signs stable and vascular status intact to all digits of the left foot. She is to be weightbearing in a surgical splint with activities of daily living only; otherwise, she is to ice and elevate. She is to follow up in my office in 10 days period of time or sooner if necessary. She was given a prescription for Vicodin for postoperative pain. Job ID: [id number] DocumentID: [id number] Dictated Date: 04/02/2022 13:04:39 Dosier Operator Date: 04/02/2022 22:47:00 Dictated By: ANDREEA BURDEN DPM
== END 2022-04-02 14:24 | disposition home or self-care (01) ==
LOC: SDC 10:27
PROVIDERS: ATTEND Podiatrist Foot & Ankle Surgery
DX: M20.22 Hallux rigidus, left foot (principal); K21.9 Gastro-esophageal reflux disease without esophagitis; E66.9 Obesity, unspecified; G47.33 Obstructive sleep apnea (adult) (pediatric); E03.9 Hypothyroidism, unspecified; F32.5 Major depressive disorder, single episode, in full remission; G25.81 Restless legs syndrome; R03.0 Elevated blood-pressure reading, without diagnosis of hypertension; Z79.890 Hormone replacement therapy; Z79.899 Other long term (current) drug therapy; Z68.32 Body mass index [BMI] 32.0-32.9, adult
CPT/HCPCS: 73620; 87081

== ENCOUNTER → 2023-02-08 | Outpatient (CLI) | payer MEDICARE, OTHER ==
[~2023-02-08] MED LIST changes: +ACHD5005 PO
--- NOTE | 2023-02-08 16:57 | Diagnostic Imaging Report ---
INDICATION: Routine screening. COMPARISON: 02/01/2022 and 02/05/2020. TECHNIQUE: 2D and 3D bilateral screening mammography was performed with CAD. FINDINGS: Scattered fibroglandular densities are identified bilaterally. Intraparenchymal lymph nodes in both breasts appear stable. Benign-appearing calcifications are noted bilaterally. No spiculated mass or malignant-appearing microcalcifications are identified. The axillae are unremarkable. IMPRESSION: No mammographic features suspicious for malignancy are identified. ACR BI-RADS Category 2: Benign findings. Result letter will be mailed to the patient. Note: At least 10% of breast cancer is not imaged by mammography. Dictated by: Dictated on workstation # [id number]
== END ==
LOC: RAD 14:36
PROVIDERS: ATTEND Physician Assistant
DX: Z12.31 Encounter for screening mammogram for malignant neoplasm of breast (principal)
CPT/HCPCS: 77063; 77067